=== PATIENT | male | born 1985 | race Caucasian/White ===

== ENCOUNTER 2021-11-15 00:44 | Emergency (ER) | payer BC, SELFPAY ==
[~2021-11-15] VITALS: Ht 182.9 cm; Wt 142.9 kg
[2021-11-15 01:18] VITALS: BP_SYST 134
--- NOTE | 2021-11-15 01:25 | NUR ---
Patient triaged and placed in tent. VS checked and patient appears in no acute distress at this time. Accompanied by self, awaiting available bed, and MD notified of need for MSE.
--- NOTE | 2021-11-15 01:35 | NUR ---
Patient to ER bed 1 for evaluation and treatment
[2021-11-15] MEDS ORDERED: ALBUTEROL SULFATE 0.083% 2.5 MG/3 ML VIAL.NEB INH ONE ×2 (01:49→02:00)
[2021-11-15] MEDS ORDERED: IPRATROPIUM BROM 0.5 MG/2.5 ML VIAL.NEB (ATROVENT) INH ONE ×2 (01:50→02:00)
--- NOTE | 2021-11-15 02:07 | NUR ---
PT AOX4, AMBULATORY WITH COMPLAINT OF SOB WITH DRY ITCHY COUGHING SPELLS FOR THREE DAYS. PT REPORTS BEING NEWLY DIAGNOSED WITH HYPERTENSION WITH A NEW PRESCRIPTION OF LISINOPRIL SINCE THURSDAY. PT DENIES CHEST PAIN, OR PRODUCTIVE COUGH. PT REPORTS HX OF ASTHMA SINCE CHILDHOOD, AND REPORTS RECENT NEGATIVE COVID TEST. MD AT THE BEDSIDE. WILL CONTINUE TO MONITOR NEEDED
[2021-11-15] MEDS ORDERED: DIPHENHYDRAMINE HCL 12.5 MG/5 ML UDC PO ONE (02:45)
[2021-11-15] MEDS ORDERED: ALBU8.5H8 INH (02:46)
[2021-11-15 04:12] VITALS: BP_SYST 109
--- NOTE | 2021-11-15 04:16 | NUR ---
Pt discharged. Pt awake a/o x4. aci reviewed with pt, verbalized understanding. to follow up with pmd within the next 2-3 days or return to ed if condition worsens. vs stable. ambulatory with steady gait unassisted. nad.
== END 2021-11-15 04:12 | disposition home or self-care (01) ==
LOC: SED 00:44
DX: J45.901 Unspecified asthma with (acute) exacerbation (principal); Z79.899 Other long term (current) drug therapy
CPT/HCPCS: 94640; 99283; J7613

== ENCOUNTER 2022-03-24 15:57 | Emergency (ER) | payer BC ==
[~2022-03-24] VITALS: Ht 182.9 cm; Wt 140.6 kg
[~2022-03-24 15:57] MED LIST: ALBU8.5H8 INH
[2022-03-24 16:29] VITALS: BP_SYST 142
--- NOTE | 2022-03-24 16:35 | NUR ---
Patient to ER bed 7 to gown for evaluation. Side rails up. Report given to FERCHO RECIO.
--- NOTE | 2022-03-24 16:40 | NUR ---
Patient AOx4, Ambulatory from home complaining of pain above left elbow. Patient has limited range of motion, pain with extension and flexsion, No deformity noted . Patient reports he was on a mat with handles going down a slide at [employer] when he hit his left elbow and immediately felling pain to his 3rd, 4th and 5th fingers that immediately resolved. pain to elbow is 4/10. Patient reports taking ibuprofen 600 mg today. VSS
--- NOTE | 2022-03-24 17:20 | NUR ---
ER Dr. Ruth at bedside examining patient.
[2022-03-24] MEDS ORDERED: KETOROLAC TROMETHAMINE 60 MG/2 ML VIAL IM ONE (17:30)
[2022-03-24] MEDS ORDERED: IBUP800T54 PO (17:53)
[2022-03-24 18:04] VITALS: BP_SYST 132
--- NOTE | 2022-03-24 18:04 | NUR ---
Patient given written and verbal discharge instructions and verbalizes understanding. ER MD discussed with patient the results and treatment provided. Patient in stable condition. ID arm band removed. Rx of Motrin given. Patient educated on pain management and to follow up with PMD. Pain Scale 0/10 Opportunity for questions provided and answered. Medication side effect fact sheet provided.
== END 2022-03-24 18:04 | disposition home or self-care (01) ==
LOC: SED 15:57
DX: S46.302A Unspecified injury of muscle, fascia and tendon of triceps, left arm, initial encounter (principal); J45.909 Unspecified asthma, uncomplicated; Z79.899 Other long term (current) drug therapy; W09.8XXA Fall on or from other playground equipment, initial encounter; Y93.19 Activity, other involving water and watercraft; Y92.89 Other specified places as the place of occurrence of the external cause; Y99.8 Other external cause status
CPT/HCPCS: 73080; 96372; 99283; J1885